=== PATIENT | male | born 1935 | race Caucasian/White ===

== ENCOUNTER 2024-09-17 10:23 | Day surgery (SDC) | payer MEDICARE, OTHER, SELFPAY ==
[2024-09-17] VITALS (16 sets, daily range): BP systolic 106–210; BP diastolic 56–91; BMI 15.7
[2024-09-17 10:56] LABS: Hematocrit 37.8 % (39.0-52.0); Hemoglobin 12.9 g/dL (13.0-18.0); Mean Corp Hgb Conc. 34.1 g/dL (33.0-37.0); Mean Corpuscular Volume 93.8 fL (80.0-94.0); Mean Platelet Volume 11.1 fL (7.4-10.4); Platelet Count 193 10^3/uL (130-400); Red Blood Cell Count 4.03 10^6/uL (4.70-6.10); Red Cell Dist. Width 12.6 % (11.5-14.5)
[2024-09-17 11:11] LABS: ALT (SGPT) 26 U/L (0-50); AST (SGOT) 27 U/L (17-59); Albumin 4.4 g/dl (3.5-5.0); Alkaline Phosphatase 54 U/L (38-126); Blood Urea Nitrogen 18 mg/dl (9-20); Calcium 9.2 mg/dl (8.4-10.2); Carbon Dioxide 28 mmol/L (22-30); Chloride 102 mmol/L (98-107); Glucose 159 mg/dl (70-99); Potassium 4.5 mmol/L (3.5-5.1); Sodium 141 mmol/L (135-145); Total Bilirubin 1.3 mg/dl (0.2-1.3); Total Protein 7.2 g/dl (6.3-8.2); eGFR > 60.00
--- NOTE | 2024-09-17 14:07 | ITS.CL.PACE ---
[facility] [employer] [facility] - Pacemaker Implant
Pacemaker Implant
Procedure Report:
PACEMAKER IMPLANT REPORT
Primary Care Provider: Dr Kwabena Chang
Primary oncology registrar: Dr Francisco Holguin
Date of Procedure: September 17, 2024
Procedure:
Implantation of dual-chamber permanent pacemaker utilizing the left bundle branch for conduction system pacing
Indication/Diagnosis:
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
After informed consent was obtained, 'time out' was called and confirmed, the patient was prepped and draped in a sterile fashion. Lidocaine with epi was used for local anesthesia. Central venous access was obtained via subclavian venipuncture. An
incision was made along the left chest and a pre-pectoral pocket was formed. Using a Seldinger technique and peel-away sheaths, the pacing leads were placed under fluoroscopic guidance.
Fluoroscopy was used to determine likely anatomic site for left bundle branch pacing. The Medtronic C315 sheath was used to deliver the Medtronic 3830 Selectsecure pacing lead with the helix exposed just exposed from the sheath tip during continuous
monitoring when pacemapping the septum during gentle clockwise rotation to obtain a paced QRS morphology of a W pattern in lead V1. Once the suspected optimal site was identified, lead deployment was performed with several rapid rotations as paced
QRS morphology was intermittently monitored until a paced QRS complex in lead V1 demonstrated development of an R wave [ ] (qR or rSR).
Unipolar pacing impedance dropped by approximately 200 ohms suggesting it had reached the left ventricular subendocardial.
Stable VEgm injury current is present throughout final lead position including at end of case, suggesting there was no perforation through the septum into the LV cavity.
Unipolar pacing impedance is 1050 Ohms
Unipolar pacing threshold is stable at 1V @ 0.4 ms.
Final conduction system paced QRS complex duration is 83 ms
LVAT is 53 ms and peak V5 -> peak V1 timing is 46 ms
There is QRS transition to LVSP / selective LBBP during threshold testing
Right atrial lead was placed at the RAA.
Once testing (see below) showed adequate and stable function, the leads were secured using the suture sleeves. The pocket was liberally irrigated with antibiotic solution. The leads were connected to the generator header and the leads and
generator were placed within the pocket. Fluoroscopy confirmed stable lead position. The pocket was closed in the typical fashion.
Fluoroscopy was used to guide lead placement.
IMPLANTS:
Medtronic [id number], SN: [id number], Left Pectoral
RA: Medtronic 5076-45, SN: [id number], RAA
Left Bundle: Medtronic 3830 , SN:[id number], Interventricular septum at LBB
DEVICE TESTING:
Sensing: RA 1.75 mV, RV 20 mV
Capture: RA 0.5 V@0.4ms, RV 0.5 V@0.4ms (BiPolar)
Ohms: RA 551, RV 870 (BiPolar)
FINAL PROGRAMMING
Gume Pacing: DDDR 60-130 ppm
COMPLICATIONS:
None
CONCLUSIONS:
1: Successful implant of dual chamber permanent pacemaker utilizing Left Bundle Branch conduction system capture for ventricular resynchronization pacing.
RECOMMENDATIONS:
1. Post-op care (tele, CXR, IV abx)
2. Wound check in 5-7 days
Copy to:
Dr Kwabena Chang
Dr Francisco Holguin
[2024-09-17 15:25] LABS: Glucose - Point of Care 137 mg/dl (70-99)
[2024-09-17 15:57] LABS: Glucose - Point of Care 130 mg/dl (70-99)
--- NOTE | 2024-09-17 17:04 | CM ---
spoke to pt and caregiver in room, he lives alone in an apt with 3 full flights to go up ( 36 steps) he denies any dc planning needs or dme's. he has a caregiver who speaks kazakh. pt speaks little kazakh. plan is for dc to home when medically
stable.
[2024-09-17] MEDS: COZAAR 50 MG PO (18:20)
[2024-09-17] MEDS: FLOMAX 0.4 MG PO (18:20)
[2024-09-17] MEDS: LIPITOR 40 MG PO (18:20)
[2024-09-17] MEDS: TENORMIN 50 MG PO (18:21)
[2024-09-17] MEDS: ANCEF 5 IV (20:05)
--- NOTE | 2024-09-17 21:35 | PTCARENOTE ---
Rec'd pt at change of shift. Pt AAO*3, VSS, and Vpaced on TELE monitor. Pt denies any pain or discomfort. Vietnamese speaking using construction recruiter. R upper chest wall dressing CDI. Pt resting with call silvestre in reach.
[2024-09-17] MEDS: TYLENOL 650 MG PO (21:51)
[2024-09-17 21:58] LABS: Glucose - Point of Care 124 mg/dl (70-99)
[2024-09-18 01:21] VITALS: BP 122/66
[2024-09-18 01:26] VITALS: BP 122/66
[2024-09-18 01:55] VITALS: BMI 33.5
[2024-09-18 02:33] LABS: Mean Corp Hgb Conc. 34.3 g/dL (33.0-37.0); Mean Corpuscular Hgb 31.6 pg (27.0-31.0); Mean Corpuscular Volume 92.1 fL (80.0-94.0); Platelet Count 162 10^3/uL (130-400); Red Cell Dist. Width 12.6 % (11.5-14.5)
[2024-09-18 03:00] LABS: Blood Urea Nitrogen 19 mg/dl (9-20); Calcium 8.9 mg/dl (8.4-10.2); Carbon Dioxide 25 mmol/L (22-30); Chloride 105 mmol/L (98-107); Estimated Creatinine Clearance 57 ml/min; Glucose 131 mg/dl (70-99); Magnesium 1.7 mg/dl (1.6-2.3); Potassium 4.3 mmol/L (3.5-5.1); Sodium 139 mmol/L (135-145); eGFR > 60.00
[2024-09-18] MEDS: TYLENOL 650 MG PO (03:58)
[2024-09-18] MEDS: ANCEF 5 IV (03:59)
[2024-09-18 04:02] VITALS: BP 136/69
[2024-09-18 07:09] VITALS: BP 141/61
[2024-09-18 08:00] LABS: Glucose - Point of Care 151 mg/dl (70-99)
[2024-09-18] MEDS: COLACE 100 MG PO (08:59)
[2024-09-18] MEDS: PLAVIX 75 MG PO (09:00)
[2024-09-18] MEDS: FOLVITE 1 MG PO (09:00)
[2024-09-18] MEDS: FLUSH (NSS) 1 FLUSH IV (09:00)
--- NOTE | 2024-09-18 09:06 | W.PN.CARDCBS ---
Addendum entered and electronically signed by Jose Vegas DO 09/18/24 09:52:
I saw and examined the patient.
The Jukebox Coin Collector's note was reviewed and I agree with the note.
Comment:
Patient is an 88-year-old male with a history of left bundle branch block, hypertension, diabetes mellitus type 2, CAD, mild , BPH with symptomatic irreversible bradycardia due to progressive AV block with second-degree AV block and at times
periods of third-degree AV block. Patient underwent implantation of dual-chamber pacemaker with left bundle branch conduction system pacing for ventricular resynchronization.
Patient resting comfortably without complaint
Telemetry sinus rhythm (atrial sensed) with ventricular pacing
EKG atrial sensed, ventricular paced
Chest x-ray stable device position, no pneumothorax
A/P as below
Okay to resume beta-darleen therapy
Metformin resume Saturday
Incision check as scheduled
Stable for discharge from CV standpoint
Original Note:
Today's Communication / Plan
-
stable for d/c home
Impression / Plan
-
Primary Care Provider: Dr Kwabena Chang
Primary fuel oil truck driver: Dr Francisco Holguin
Impression:
Symptomatic bradycardia
Paroxysmal CHB
post DC PPM Medtronic 09/17/24
LBBB
HTN
DM2
CAD PCI LAD 2014
Mild
BPH
09/15/24 ECHO - EF 55-60%, severe dil LA, mild MR/MS, mild
Plan:
post device site stable
tele AsVpaced with some tachycardia
CXR no PTX, leads in good position
Resume atenolol 50mg daily, can titrate as outpt if HR remain elevated
Hold Metformin post procedure, resume on Sat am
Activity restrictions reviewed with operations research analyst
Incision check 1 week at [facility]
continue cardiac care with Dr. Holguin
home today
Progress Note - Speech Writer
Subjective
Date of Service: September 18, 2024
no cp,sob, mild inc pain relief with tylenol
Objective
Labs:
09/18/24 01:57
09/18/24 01:57
Labs
Hgb 12.0 g/dL (13.0-18.0) L 09/18/24 01:57
Hct 35.0 % (39.0-52.0) L 09/18/24 01:57
Plt Count 162 10^3/uL (130-400) 09/18/24 01:57
Sodium 139 mmol/L (135-145) 09/18/24 01:57
Potassium 4.3 mmol/L (3.5-5.1) 09/18/24 01:57
BUN 19 mg/dl (9-20) 09/18/24 01:57
Creatinine 1.0 mg/dL (0.7-1.3) 09/18/24 01:57
Glucose 131 mg/dl (70-99) H 09/18/24 01:57
Vital Signs and I&O:
Vital Signs
Temp Pulse Resp BP Pulse Ox
97.7 F 95 18 141/61 95
09/18/24 07:09 09/18/24 08:00 09/18/24 07:09 09/18/24 07:09 09/18/24 07:09
Vital Signs
Temp Pulse Resp BP Pulse Ox
97.7 F 95 18 141/61 95
09/18/24 07:09 09/18/24 08:00 09/18/24 07:09 09/18/24 07:09 09/18/24 07:09
Intake & Output
09/16/24 09/17/24 09/18/24 09/19/24
06:59 06:59 06:59 06:59
Intake Total 540 / 540
Balance 540 / 540
Physical Exam
Physical Exam
NAD, AOX3
S1, S2, RRR, I/ IKE
CTAB, non labored, no wheeze
SNTND bsx4
R CW dressing c/d/i no HT
[2024-09-18 09:30] LABS: Glycohemoglobin (HgbA1c) 6.9 % (4.0-5.6)
--- NOTE | 2024-09-18 09:34 | W.DS.TRANS ---
DC Summary - Corporate Traffic Manager
-
Discharge Instructions:
Discharge Diagnosis/Procedures Heart block post Pacemaker implant
Diet Low Cholesterol,Diabetic, Carb Controlled
Driving Restrictions No driving for 1 week
Bathing Restrictions OK to Shower
Instructions:
Stand-Alone Forms: DC Inst - Implanted Device
Changes to Home Medications: No
Discharge Medications:
DC Medications w/original date entered in [facility]
calcium 600 mg (as carbonate)-vit D3 5 mcg (200 unit)-minerals tablet 1 tab PO DAILY Supplement 09/17/24
clopidogrel 75 mg tablet 75 mg PO DAILY Blood Clot Prevention/Tx 09/17/24
docusate sodium 100 mg capsule 100 mg PO DAILY Constipation 09/17/24
folic acid 1 mg tablet 1 mg PO DAILY Supplement 09/17/24
icosapent ethyl 1 gram capsule (Vascepa) 2 g PO BID 09/17/24
losartan 50 mg tablet 50 mg PO DAILY Blood Pressure 09/17/24
magnesium oxide 400 mg PO DAILY Supplement 09/17/24
meclizine 12.5 mg tablet 12.5 mg PO TID PRN as needed 09/17/24
metformin 500 mg tablet,extended release 24 hr 500 mg PO DAILY Diabetes 09/17/24
tamsulosin 0.4 mg capsule 0.4 mg PO DAILY 09/17/24
vitamin B12 500 mcg-folic acid 400 mcg tablet 1 tab PO DAILY 09/17/24
atenolol 50 mg tablet 50 mg PO QPM #0 tabs 09/18/24
atorvastatin 40 mg tablet 40 mg PO QPM #0 tabs 09/18/24
Home Medication Changes
Pending Results: No
--- NOTE | 2024-09-18 09:52 | PTCARENOTE ---
Received patient this morning resting in bed with immobilizer in place RUE. Pressure dressing was dry and intact. Patient seen by Dr. Bansal this morning, pressure dressing was removed and aquacel dressing is dry and intact. Immobilizer removed,
reinforced post op activity restrictions. Patient is cleared for discharge, awaiting ride from caregiver who speaks fluent malagasy. Will go over d/c instructions when caregiver arrives.
--- NOTE | 2024-09-18 11:33 | PTCARENOTE ---
Caregiver from nursing agency that speaks Luxembourgish and Burkinan here to bring the patient home. Reviewed med list, post pacer restrictions and follow up appointments with the patient and caregiver and they state their understanding. Patient discharged
home.
== END 2024-09-18 11:28 | disposition home or self-care (01) ==
LOC: CATH 10:23
PROVIDERS: Nurse Practitioner Adult Health; ATTENDING PHYSICIAN Internal Medicine Cardiovascular Disease; FAMILY PHYSICIAN Internal Medicine
DX: I44.2 Atrioventricular block, complete (principal); E11.9 Type 2 diabetes mellitus without complications; I10 Essential (primary) hypertension; I25.10 Atherosclerotic heart disease of native coronary artery without angina pectoris; Z95.5 Presence of coronary angioplasty implant and graft; I35.0 Nonrheumatic aortic (valve) stenosis; N40.0 Benign prostatic hyperplasia without lower urinary tract symptoms; Z79.02 Long term (current) use of antithrombotics/antiplatelets; Z79.84 Long term (current) use of oral hypoglycemic drugs; Z79.899 Other long term (current) drug therapy
CPT/HCPCS: 33208; 71045; 80048; 80053; 82962; 83036; 83735; 85027; 93005; C1769; C1785; C1892; C1898; Q9967